=== PATIENT | female | born 1995 ===

== ENCOUNTER 2018-02-27 17:40 | Emergency (ER) | payer OTHER ==
[2018-02-27 17:47] VITALS: BMI 24.1
[2018-02-27 17:54] VITALS: BP 138/38; PULSE 104; RESP 18; TEMP 98.5; O2SAT 99
[2018-02-27] MEDS ORDERED: Albuterol-Ipratrop 3 mg / 0.5 (3 ml) UD INH STA ×2 (18:05→18:44)
--- NOTE | 2018-02-27 18:07 | C.PDOC ---
History Of Present Illness 22 y/o female with no significant PMH presents to the ED with mother c/o productive cough x 1 week. Cough is productive of yellow/green mucus. Associated sore throat, right ear discomfort, and nasal congestion. Pain in throat is worse when swallowing. Tolerating PO intake without difficulty. Has not taken any medication for her symptoms. Positive sick contact, mother. Smokes marijuana daily, none today. No OCP use, recent travel/surgery/immobilization/PMH or FH of DVT/PE. Denies fever, chills, hemoptysis, dizziness, lightheadedness, palpitations, syncope, chest pain, SOB, abdominal pain, N/V/D, back pain, calf swelling, calf pain, weakness, numbness, headache, vision change, rash. PMD: None Chief Complaint (Nursing): Cough, Cold, Congestion History Per: Patient History/Exam Limitations: no limitations Onset/Duration Of Symptoms: Days Location Of Pain: Ear(s) (right), Throat Past Medical History Reviewed: Historical Data, Nursing Documentation, Vital Signs Vital Signs: Last Vital Signs Temp 98.5 F 02/27/18 17:48 Pulse 104 H 02/27/18 17:48 Resp 18 02/27/18 17:48 BP 138/38 L 02/27/18 17:48 Pulse Ox 99 02/27/18 17:48 - Medical History PMH: No Chronic Diseases Surgical History: Tonsillectomy Family History: States: Unknown Family Hx - Social History Hx Tobacco Use: No Hx Alcohol Use: Yes Hx Substance Use: Yes - Immunization History Hx Tetanus Toxoid Vaccination: No Hx Influenza Vaccination: No Hx Pneumococcal Vaccination: No Review Of Systems Except As Marked, All Systems Reviewed And Found Negative. Constitutional: Negative for: Fever, Chills Eyes: Negative for: Pain, Vision Change, Redness ENT: Positive for: Ear Pain, Throat Pain. Negative for: Throat Swelling Cardiovascular: Negative for: Chest Pain, Palpitations, Edema, Light Headedness Respiratory: Positive for: Cough, Sputum. Negative for: Shortness of Breath, Hemoptysis, SOB with Excertion, Pleuritic Pain, Wheezing Gastrointestinal: Negative for: Nausea, Vomiting, Abdominal Pain, Diarrhea, Constipation Genitourinary: Negative for: Dysuria, Frequency, Vaginal Discharge, Vaginal Bleeding Musculoskeletal: Negative for: Neck Pain, Back Pain, Leg Pain Skin: Negative for: Rash Neurological: Negative for: Weakness, Numbness, Seizures, Headache, Dizziness Physical Exam - Physical Exam Appears: Well, Non-toxic, No Acute Distress Skin: Normal Color, Warm, Dry, No Diaphoretic Head: Atraumatic, Normacephalic, No Tenderness Eye(s): bilateral: Normal Inspection, PERRL, EOMI Ear(s): Bilateral: Normal Nose: Normal Oral Mucosa: Moist Tongue: Normal Appearing Lips: Normal Appearing Throat: Erythema, Other (s/p tonsillectomy) Neck: Normal, Normal ROM, No Midline Cervical Tenderness, No Other (meningeal signs) Lymphatic: Normal Exam, No Adenopathy Chest: Symmetrical, No Deformity, No Tenderness Cardiovascular: Rhythm Regular Respiratory: No Accessory Muscle Use, Wheezing (diffuse inspiratory and expiratory bilaterally) Gastrointestinal/Abdominal: Normal Exam, Bowel Sounds (normoactive), Soft, No Tenderness Back: Normal Inspection, No CVA Tenderness, No Vertebral Tenderness, No Decreased ROM, No Paraspinal Tenderness Extremity: Normal ROM, No Tenderness, No Pedal Edema, No Calf Tenderness, Capillary Refill (<2s), No Deformity, No Swelling Extremity: Bilateral: Atraumatic, No Pedal Edema, Normal Color And Temperature, Normal ROM Pulses: Left Radial: Normal (88), Right Radial: Normal Neurological/Psych: Oriented x3, Normal Speech, Normal Cognition, Normal Cranial Nerves, No Cerebellar Signs, Normal Motor, Normal Sensation Gait: Steady ED Course And Treatment O2 Sat by Pulse Oximetry: 99 - Radiology CXR: Viewed By Me, Read By Radiologist CXR Interpretation: Yes: No Acute Disease Medical Decision Making Medical Decision Makin:07 Initial Plan: * CXR * Rapid Strep * Duoneb x 2 * Prednisone CXR: no active disease Rapid strep: negative 19:00 Pt states she feels much better after medications. Reports decreased chest congestion and resolution of cough. Would like to be discharged home. On physical exam, wheezing has decreased significantly bilaterally. During re- eval, pt eating Dorito chips in stretcher without difficulty. No respiratory distress, speaking in full sentences. Case discussed with DOMI Koehler, who agrees with plan and recommends discharge home with Z-irwin and course of Prednisone with followup in clinic. Patient asking to leave ED, given discharge paperwork by nursing but left ED before final vitals could be repeated. Pulse was wnl during physical exam, 88. Pt A&Ox3, ambulated with steady gait. Speaking in full sentences without any respiratory distress or increased work of breathing. Plan of care discussed with patient, and strict instructions given regarding prescriptions given, importance of follow up, and signs to return to Emergency Department, to include difficulty breathing, chest pain, syncope, dizziness, hemoptysis, or any other new/worsening symptoms. Patient verbalizes understa nding of discussion. Pt stable for discharge home. Impression: Upper Respiratory Infection Plan: * Z-Irwin * Prednisone * Albuterol Inhaler * Clinic followup within 2 days * Return to ER for new/worsening symptoms Disposition - Disposition Referrals: [facility] [Outside] Disposition: HOME/ ROUTINE Disposition Time: 19:30 Condition: IMPROVED Additional Instructions: Increase fluids Take antibiotic as prescribed Take prednisone 2 pills every morning for 4 days Use inhaler as needed every 6 hours for cough and chest tightness Followup with clinic or primary doctor within 2 days Return to ER for new/worsening symptoms Prescriptions: Albuterol HFA [Ventolin HFA 90 mcg/actuation (8 g)] 2 puff IH Q6H PRN #60 puff PRN Reason: asthma Azithromycin [Z-Irwin] 250 mg PO DAILY #6 tab Prednisone [Deltasone] 40 mg PO DAILY 4 Days #8 tablet Instructions: Upper Respiratory Infection (ED) Forms: [facility] (Portuguese), Work Excuse - Clinical Impression Clinical Impression: Upper respiratory infection
[2018-02-27] MEDS ORDERED: Albuterol-Ipratrop 3 mg / 0.5 (3 ml) UD ONE ×2 (18:18→19:05)
--- NOTE | 2018-02-27 19:00 | RAD ---
Date of service: 02/27/2018 HISTORY: cough r/o PNA COMPARISON: No prior. TECHNIQUE: Chest PA and lateral FINDINGS: LUNGS: No active pulmonary disease. PLEURA: No significant pleural effusion identified. No pneumothorax apparent. CARDIOVASCULAR: No aortic atherosclerotic calcification present. Normal cardiac size. No pulmonary vascular congestion. OSSEOUS STRUCTURES: No significant abnormalities. VISUALIZED UPPER ABDOMEN: Normal. OTHER FINDINGS: None. IMPRESSION: No acute cardiopulmonary disease appreciated. Nipple ring noted left nipple.
== END 2018-02-27 20:00 | disposition home or self-care (01) ==
LOC: C.ER 17:40
DX: J06.9 Acute upper respiratory infection, unspecified (principal)